=== PATIENT | female | born 1975 | race Caucasian/White ===

== ENCOUNTER 2018-03-14 14:54 | Outpatient (RCR) | payer MEDICAID, SELFPAY | END 2018-03-14 17:00 | disposition home or self-care (01) | LOC: PT 14:54 | PROVIDERS: Visit Provider Nurse Practitioner Family | DX: M54.2 Cervicalgia (principal); M54.5 Low back pain; G89.29 Other chronic pain; G56.93 Unspecified mononeuropathy of bilateral upper limbs; G57.93 Unspecified mononeuropathy of bilateral lower limbs | CPT/HCPCS: 97163 ==

== ENCOUNTER → 2019-01-23 08:49 | Outpatient (POV) | payer MEDICAID, SELFPAY ==
[2019-01-23 09:00] VITALS: BP 143/89; PULSE 89; RESP 18; O2SAT 99
--- NOTE | 2019-01-24 15:10 | HMH.PMCON ---
Assessment and Plan (1) Degenerative disc disease Current visit: Yes Status: Chronic Qualifiers: Spinal region: lumbar Qualified Code(s): M51.36 - Other intervertebral disc degeneration, lumbar region Category: Medical (2) Degenerative disc disease, cervical Current visit: Yes Status: Chronic Category: Medical Code(s): M50.30 - Other cervical disc degeneration, unspecified cervical region (3) Degenerative disc disease, lumbar Current visit: Yes Status: Chronic Category: Medical Code(s): M51.36 - Other intervertebral disc degeneration, lumbar region - Assessment and plan all Dx Assessment and Plan for all problems:: We will schedule patient for psychological evaluation to determine if she is a good candidate for neurostimulator. I answered her questions. I will follow-up with her after this. Dr. Osman has reviewed this note and agrees with this plan of care. This note was dictated using voice recognition software and may contain errors or omissions HPI - Data of Consult Consult date: 01/23/19 Requesting Physician: Cris Metz APRN Primary Care Provider: Opal Greene - Consult Narrative Reason for consult: Chronic pain History of present illness: Ms. Darden is a 43 year old female who presents today for consultation in regards to her chronic pain. She has pain in her back and her neck. She states sitting for long periods increases her pain while standing decreases her pain she has numbness and tingling in all extremities. She has had a spinal fusion and discectomy in the past. She had epidurals in the past with moderate relief. She is tried and failed physical therapy, massage therapy along with multiple medications. Patient rates her pain a 6 out of 10 today. Patient and I had a long discussion in regards to moving forward. I did give the patient information in regards to her neurostimulator she is interested in moving forward with this. CC: Cris Metz APRN [facility] History I have reviewed the patient's past medical history: Yes Medical History: Reports:: Hypertension Denies:: Diabetes Mellitus Type 1, Diabetes Mellitus Type 2 Other Surgeries: Yes: Hysterectomy-Total, Tubal Ligation Amputation: No Fractures: No - *Social History Smoking Status: Current every day smoker Tobacco Type: cigarettes # Packs/Day (cigarettes): 1 Alcohol Intake: never *Occupational Status:: other Housing: house *Travel in the last 8 weeks: None - Psychiatric History Expresses thoughts of harming self/others: None Suicide Plan Description: No Plan Family Hx:: Unable to obtain Review of Systems - Review of Systems ROS General: no recent weight change, no fever, no sleep disturbances Respiratory: no cough, no shortness of air, no recurring pulmonary infections Cardiovascular/Peripheral Vascular: No chest pain, No palpitations, no edema, no shortness of breath. Gastrointestinal: no incontinence, normal bowel movements reported Genitourinary: no incontinence Musculoskeletal: Back pain, leg pain, neck pain, arm pain Psychiatric: normal mood/ affect Neurological: [denies weakness in extremities], [denies balance issues] Meds Home Medications Medication Instructions Recorded Confirmed Type Cyclobenzaprine HCl 10 mg PO DAILY 01/23/19 01/23/19 History [Cyclobenzaprine 10mg Tab] Diclofenac Potassium [Diclofenac 50 mg PO TID 01/23/19 01/23/19 History 50mg Tab] Duloxetine HCl [Cymbalta 30mg 30 mg PO DAILY 01/23/19 01/23/19 History capsule] Lisinopril [Lisinopril 5mg Tablet] 5 mg PO DAILY 01/23/19 01/23/19 History Allergies Allergy/AdvReac Type Severity Reaction Status Date / Time No Known Allergies Allergy Verified 01/23/19 09:08 Objective Vital signs: Pulse Resp BP Pulse Ox 89 18 143/89 H 99 01/23/19 09:00 01/23/19 09:00 01/23/19 09:00 01/23/19 09:00 Narrative: Physical Exam General: Alert and oriented x3
--- NOTE | 2019-01-24 15:14 | P.CONS_ITS ---
Assessment and Plan (1) Degenerative disc disease Current visit: Yes Status: Chronic Qualifiers: Spinal region: lumbar Qualified Code(s): M51.36 - Other intervertebral disc degeneration, lumbar region Category: Medical (2) Degenerative disc disease, cervical Current visit: Yes Status: Chronic Category: Medical Code(s): M50.30 - Other cervical disc degeneration, unspecified cervical region (3) Degenerative disc disease, lumbar Current visit: Yes Status: Chronic Category: Medical Code(s): M51.36 - Other intervertebral disc degeneration, lumbar region - Assessment and plan all Dx Assessment and Plan for all problems:: We will schedule patient for psychological evaluation to determine if she is a good candidate for neurostimulator. I answered her questions. I will follow-up with her after this. Dr. Osman has reviewed this note and agrees with this plan of care. This note was dictated using voice recognition software and may contain errors or omissions HPI - Data of Consult Consult date: 01/23/19 Requesting Physician: Cris Metz APRN Primary Care Provider: Opal Greene - Consult Narrative Reason for consult: Chronic pain History of present illness: Ms. Darden is a 43 year old female who presents today for consultation in regards to her chronic pain. She has pain in her back and her neck. She states sitting for long periods increases her pain while standing decreases her pain she has numbness and tingling in all extremities. She has had a spinal fusion and discectomy in the past. She had epidurals in the past with moderate relief. She is tried and failed physical therapy, massage therapy along with multiple medications. Patient rates her pain a 6 out of 10 today. Patient and I had a long discussion in regards to moving forward. I did give the patient information in regards to her neurostimulator she is interested in moving forward with this. CC: Cris Metz APRN [facility] History I have reviewed the patient's past medical history: Yes Medical History: Reports:: Hypertension Denies:: Diabetes Mellitus Type 1, Diabetes Mellitus Type 2 Other Surgeries: Yes: Hysterectomy-Total, Tubal Ligation Amputation: No Fractures: No - *Social History Smoking Status: Current every day smoker Tobacco Type: cigarettes # Packs/Day (cigarettes): 1 Alcohol Intake: never *Occupational Status:: other Housing: house *Travel in the last 8 weeks: None - Psychiatric History Expresses thoughts of harming self/others: None Suicide Plan Description: No Plan Family Hx:: Unable to obtain Review of Systems - Review of Systems ROS General: no recent weight change, no fever, no sleep disturbances Respiratory: no cough, no shortness of air, no recurring pulmonary infections Cardiovascular/Peripheral Vascular: No chest pain, No palpitations, no edema, no shortness of breath. Gastrointestinal: no incontinence, normal bowel movements reported Genitourinary: no incontinence Musculoskeletal: Back pain, leg pain, neck pain, arm pain Psychiatric: normal mood/ affect Neurological: [denies weakness in extremities], [denies balance issues] Meds Home Medications Medication Instructions Recorded Confirmed Type Cyclobenzaprine HCl 10 mg PO DAILY 01/23/19 01/23/19 History [Cyclobenzaprine 10mg Tab] Diclofenac Potassium [Diclofenac 50 mg PO TID 01/23/19 01/23/19 History 50mg Tab] Duloxe
== END ==
PROVIDERS: PCP Physician Assistant; Visit Provider Clinical Nurse Specialist Family Health
DX: M51.36 Other intervertebral disc degeneration, lumbar region (principal); M50.30 Other cervical disc degeneration, unspecified cervical region
CPT/HCPCS: 99202

== ENCOUNTER → 2021-02-11 18:35 | Outpatient (CLI) | payer OTHER, SELFPAY ==
[2021-02-11 19:23] LABS: Basophils # 0.1 K/mm3 (0-0.2); Basophils % 0.8 % (0.1-2.0); Eosinophils % 0.5 % (0.1-12.0); Hematocrit 48.2 % (37.0-47.0); Hemoglobin 15.8 g/dL (12.2-16.2); Lymphocytes # 2.2 K/mm3 (0.7-4.5); Lymphocytes % 24.3 % (10-50); Mean Corpuscular HGB Conc 32.7 g/dL (31.8-35.4); Mean Corpuscular Volume 91.7 fl (81-99); Mean Platelet Volume 8.8 fl (7.4-10.4); Monocytes # 0.4 K/mm3 (0.1-1.0); Monocytes % 4.5 % (1.7-9.3); Neutrophils # 6.2 K/mm3 (1.8-7.8); Neutrophils % 69.9 % (37.0-80.0); Platelet Count 245 K/mm3 (142-424); Red Blood Count 5.26 M/mm3 (4.20-5.40); Red Cell Distribution Width 13.2 % (11.5-17.5); White Blood Count 8.9 K/mm3 (4.8-10.8)
[2021-02-11 19:32] LABS: Alanine Aminotransferase 21 U/L (12-78); Albumin Level 4.5 g/dl (3.5-5.0); Albumin/Globulin Ratio 1.7 (1.1-1.8); Alkaline Phosphatase 114 U/L (38-126); Anion Gap 11.6 mEq/L (5-15); Aspartate Amino Transferase 26 U/L (14-36); Bilirubin,Total 0.3 mg/dl (0.2-1.3); Blood Urea Nitrogen 7 mg/dl (7-17); Calcium 9.6 mg/dl (8.4-10.2); Carbon Dioxide 25 mmol/L (22.0-30.0); Chloride 105 mmol/L (98-107); Estimated Glomerular Filt Rate 78 ml/min (>60); GFR (African American) 95 ML/MIN (>60); Globulin 2.7 g/dL (1.3-3.2); Glucose 143 mg/dl (74-100); Magnesium 1.7 mg/dl (1.6-2.3); Potassium 3.6 mmoL/L (3.5-5.1); Sodium 138 mmol/L (136-145); Total Protein,Serum 7.2 g/dl (6.3-8.2)
[2021-02-11 19:43] LABS: 25-OH Vitamin D, Total 62.5 ng/mL (30-100)
[2021-02-11 20:02] LABS: Thyroid Stimulating Hormone 1.46 uIU/mL (0.465-4.68)
[2021-02-11 20:20] LABS: Vitamin B12 299 pg/mL (239-931)
[2021-02-13 11:12] LABS: Hemoglobin A1C 5.7 % (4.0-6.0)
== END ==
PROVIDERS: Visit Provider Internal Medicine Adolescent Medicine
DX: R00.0 Tachycardia, unspecified (principal); R00.2 Palpitations; R73.9 Hyperglycemia, unspecified
CPT/HCPCS: 80053; 82306; 82607; 83036; 83735; 84443; 85025

== ENCOUNTER → 2021-03-04 13:20 | Outpatient (CLI) | payer OTHER, SELFPAY ==
--- NOTE | 2021-03-04 13:26 | CT_ITS ---
PROCEDURE: CT HEAD/BRAIN WO CON CLINICAL INDICATION: CONCUSSION WITH LOC COMPARISON: No exams were available for comparison TECHNIQUE: Axial images obtained. All CT scans at the facility use one or more dose reduction, viz: automated exposure control, ma/kV adjustment per patient size (including targeted exams where dose is matched to indication, i.e. head), or iterative reconstruction technique. FINDINGS: No midline shift, mass effect, intracranial hemorrhage, hydrocephalus, or extra-axial fluid collection is evident. The calvarium has an unremarkable appearance. No mastoid effusion. Minimal mucosal thickening involves the sphenoid sinus laterally on the right suggesting a small retention cyst IMPRESSION: No acute intracranial finding Dictated by: Ky Velasco MD 03/04/2021 16:49 Ky Velasco MD in [facility] 03/04/2021 16:49
== END ==
PROVIDERS: PCP Internal Medicine Adolescent Medicine; Visit Provider Internal Medicine Adolescent Medicine
DX: S06.0X9A Concussion with loss of consciousness of unspecified duration, initial encounter (principal)
CPT/HCPCS: 70450

== ENCOUNTER → 2021-04-17 10:47 | Outpatient (POV) | payer OTHER, SELFPAY ==
[2021-04-17 11:10] VITALS: BP 153/100; PULSE 77; RESP 18; O2SAT 94; BMI 30.4
--- NOTE | 2021-04-17 12:05 | HMH.PMCON ---
Assessment and Plan (1) Lumbar radiculopathy Status: Chronic Category: Medical Code(s): M54.16 - Radiculopathy, lumbar region (2) Degenerative disc disease, cervical Status: Chronic Category: Medical Code(s): M50.30 - Other cervical disc degeneration, unspecified cervical region (3) Degenerative disc disease, lumbar Status: Chronic Category: Medical Code(s): M51.36 - Other intervertebral disc degeneration, lumbar region (4) Cervical radiculopathy Status: Chronic Category: Medical Code(s): M54.12 - Radiculopathy, cervical region - Assessment and plan all Dx Assessment and Plan for all problems:: Patient has tried and failed all conservative therapies at this point. She has tried injective therapy along with physical therapy on multiple rounds of more than 6 weeks. She has tried and failed conservative therapies of anti-inflammatories and home stretching. Patient has not gotten any significant relief. She has had a cervical and lumbar fusion with no relief. At this point, her pain is worsening and she is not considered a surgical candidate. We will send patient for psychological evaluation to see if she is an appropriate candidate for spinal cord stimulation. Her pain is worse in her low back at this time. Due to her caring for her son and history of not being able to tolerate opiates, she would like to proceed with spinal cord stimulation trial. We did discuss that because her pain is worse to her low back we will start with leads into the lumbar spine. If her pain worsens to her cervical spine, she may be a candidate for cervical leads in the future. We will see the patient back after her a evaluation for further management. Patient has been instructed to contact the clinic with any concerns before the next appointment. Dr. Osman has reviewed this note and agrees with this plan of care. This note was dictated using voice recognition software and make contain errors or omissions. HPI - Data of Consult Patient: new to practice Consult date: 04/17/21 Requesting Physician: Shelley Narvaez APRN Primary Care Provider: Jass Grajeda MD - Consult Narrative Reason for consult: Neck pain, low back pain History of present illness: Ms. Darden is a 45 year old female who presents today for consultation for chronic neck and low back pain. Patient was seen in our clinic the previous year for worsening neck and low back pain. At that time, she was worked up for possible spinal cord stimulation trial, however, did not follow-up after scheduled psychological evaluation. The patient did not undergo psychological evaluation at that time. Patient was referred to us by Dr. Lance. She is having worsening pain to her low back with bilateral lower extremity pain. She says that her pain is worse to her right leg. Her legs are becoming weak with paresthesia and with what she feels to be her legs giving out . She is also having neck pain with bilateral arm pain and numbness and tingling. At this time her pain is worse in her low back area. Patient has had this pain for 14 years or longer. 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 This has worsened her pain. She has tried cervical and lumbar epidural steroid injections with no significant relief. She has undergone physical therapy for more than 6 weeks as well with no relief. 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 She has had a spinal fusion to her cervical and lumbar spine in the past and continues to have significant pain. She does attempt a modified home stretching program, which is limited due to her pain. She is also tried anti-inflammatories. Patient is not considered a surgical candidate at this time. She is here today for further work-up for possible spinal cord stimulation. CC: Shelley Hernandez
== END ==
PROVIDERS: PCP Internal Medicine Adolescent Medicine; Visit Provider Clinical Nurse Specialist Family Health
DX: M51.16 Intervertebral disc disorders with radiculopathy, lumbar region (principal); M50.10 Cervical disc disorder with radiculopathy, unspecified cervical region
CPT/HCPCS: 99202; G0463

== ENCOUNTER → 2021-05-12 10:06 | Outpatient (CLI) | payer OTHER, SELFPAY ==
--- NOTE | 2021-05-12 10:18 | MM_ITS ---
PROCEDURE INFORMATION: Exam: Screening 3D Mammography Exam date and time: 05/12/2021 10:18 AM Age: 45 years old Clinical indication: Encounter for screening mammogram for malignant neoplasm of breast TECHNIQUE: Imaging protocol: Screening tomosynthesis and 2D mammography including computer-aided detection (CAD) when performed. COMPARISON: MAMMO SCREENING DIGITAL BILAT 02/18/2015 3:25 PM FINDINGS: MAMMOGRAPHY: Breast composition: There are scattered areas of fibroglandular density. Mass: None. Architectural distortion: No new or suspicious architectural distortion. Calcifications: No new or suspicious calcifications are present Asymmetric density: No new or suspicious asymmetric density is present Skin thickening: None. Axillary adenopathy: None. IMPRESSION: No mammographic evidence of malignancy. Recommend annual screening mammography unless otherwise clinically indicated. ASSESSMENT: BI-RADS category 1: Negative
== END ==
PROVIDERS: PCP Internal Medicine Adolescent Medicine; Visit Provider Nurse Practitioner Family
DX: Z12.31 Encounter for screening mammogram for malignant neoplasm of breast (principal)
CPT/HCPCS: 77063; 77067

== ENCOUNTER → 2023-02-24 08:46 | Outpatient (POV) | payer OTHER, SELFPAY ==
[2023-02-24 08:55] VITALS: BP 167/100; PULSE 89; RESP 20; O2SAT 97; BMI 28.0
--- NOTE | 2023-02-24 09:10 | EXP.PAIN.OV ---
HPI Data of Consult Patient: new to practice Consult date: 02/24/23 Requesting Physician: Leti Del Castillo APRN Primary Care Provider: Jass Grajeda MD Consult Narrative Reason for consult: Neck pain, bilateral arm pain History of present illness: Ms. Darden is a 47 year old female who presents today as a new patient. She is a referral from Carloz Costa's and Dr. Grajeda's office. Today she rates her pain a 8 out of 10. Patient states her pain is all in her neck with radiating symptoms into her upper extremities. She does state this is a constant intense shocking sensation with tingling and numbness alternating between a burning hot sensation. Patient states this has been going on for years and progressively worsened over time. She states it does interfere with her ability to perform activities of daily living. She states it also affects her sleeping due to her pain being worse when she lays down. 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 Patient states she was a previous patient of ours around [facility] and then things got busy and she did not come back. Patient also has a history of low back pain and has had a lumbar fusion and a discectomy in her past. Patient has tried [id number] medications such as Tylenol and ibuprofen along with heat and ice and topicals with no additional relief. Patient has been to physical therapy in the past with no additional change. Patient has had injections as well including cervical epidurals with minimal improvement. In the past we had discussed talking about a spinal cord stimulator however we never proceeded forward with this option. Patient is not currently on any scheduled medications. Her Andres is [phone]. Its reviewed and appropriate. CC: Leti Del Castillo APRN [facility] Disclaimer: The information contained in this section may have been updated after the patient was seen, as this information can be updated by other users. Medical History (Updated 02/24/23 @ 09:17 by Leti Del Castillo APRN) Depression HTN (hypertension) Surgical History (Updated 02/24/23 @ 08:59 by Radha Titus RN) H/O lumbar discectomy H/O tubal ligation H/O: hysterectomy History of lumbar fusion Family History (Updated 02/24/23 @ 08:59 by Radha Titus RN) Other No significant family history Social History (Updated 02/24/23 @ 08:59 by Radha Titus RN) Smoking Status: Current every day smoker tobacco type: cigarettes packs per day: 1 alcohol intake: never current occupational status: other Travel in the last 8 weeks: None housing: house current occupational exposures/hazards: No caffeine: No Review of Systems Review of Systems Review of systems:: pertinent systems reviewed and negative unless documented below Review of systems (narrative): Review of Systems: General: No recent weight changes, no fever, no sleep disturbances Respiratory: No cough, no shortness of air, no recurring pulmonary infections Cardiovascular/peripheral vascular: No chest pain, no palpitations, no edema, no shortness of breath Gastrointestinal: No new onset incontinence, normal bowel movements reported Genitourinary: No new onset incontinence Musculoskeletal: Neck pain, bilateral arm pain Psychiatric: [Normal mood/affect] Neurological: [Denies weakness in extremities], [denies balance issues] Meds Home Medications and Allergies Home Medications Medication Instructions Recorded Confirmed Type cyclobenzaprine 10 mg tablet 10 mg PO DAILY Pain 01/23/19 02/24/23 History diclofenac potassium 50 mg tablet 50 mg PO TID Pain 01/23/19 02/24/23 History duloxetine 30 mg capsule,delayed 30 mg PO DAILY Depression 01/23/19 02/24/23 History release lisinopril 5 mg tablet 5 mg PO DAILY Hypertension 01/23/19 02/24/23 History New Prescriptions to Start Prescriptions: Allergies Allergy/AdvReac Type Severity Reaction Status Date / Time No Known Allergies Allergy
== END ==
PROVIDERS: PCP Internal Medicine Adolescent Medicine; Visit Provider Nurse Practitioner Family
DX: M51.16 Intervertebral disc disorders with radiculopathy, lumbar region (principal); M50.10 Cervical disc disorder with radiculopathy, unspecified cervical region
CPT/HCPCS: 99202; G0463

== ENCOUNTER → 2023-03-01 09:36 | Outpatient (CLI) | payer OTHER, SELFPAY | PROVIDERS: PCP Internal Medicine Adolescent Medicine; Visit Provider Nurse Practitioner Family | DX: M54.2 Cervicalgia (principal) ==